=== PATIENT | female | born 1975 | race Caucasian/White ===

== ENCOUNTER 2017-03-26 17:26 | Emergency (ER) | payer MEDICAID ==
--- NOTE | 2017-03-26 18:26 | ER Document Report ---
ED Medical Screen (RME) - General Chief Complaint: Flank Pain Stated Complaint: STOMACH PAIN Time Seen by Provider: 03/26/17 18:21 Notes: Patient states she has a history of abdominal problems with intermittent diarrhea and mucus from her rectum. She states approximately 2 years ago she had a colonoscopy and was told that she had a mild colitis and was prescribed antibiotics. She states she was not informed of any other abnormalities on the colonoscopy. She states now for several months she has had left sided abdominal pain with continued diarrhea. No problems with urination. No problems with vaginal discharge or bleeding. She states that she gets easily distended and bloated when eating. Patient denies any fever. TRAVEL OUTSIDE OF THE [place] IN LAST 30 DAYS: No - Related Data Allergies/Adverse Reactions: gabapentin [From Neurontin] Allergy (Unknown, Verified 03/26/17 17:31) haloperidol Allergy (Verified 03/26/17 18:17) Home Medications: Current Home Medications Amitriptyline HCl [Elavil 50 Mg Tablet] 50 mg PO QHS 03/26/17 [History] Past Medical History Neurological Medical History: Reports: Hx Migraine Renal/ Medical History: Denies: Hx Peritoneal Dialysis Musculoskeltal Medical History: Reports Hx Arthritis Psychiatric Medical History: Reports: Hx Anxiety Past Surgical History: Reports: Hx Myringotomy, Hx Oral Surgery - Cleft palate, Hx Tubal Ligation - Immunizations Hx Diphtheria, Pertussis, Tetanus Vaccination: Yes Physical Exam - Vital signs Vitals: Temp Pulse Resp BP Pulse Ox 98.0 F 78 16 150/90 H 100 03/26/17 17:30 03/26/17 17:30 03/26/17 17:30 03/26/17 17:30 03/26/17 17:30 Course - Vital Signs Vital signs: Temp Pulse Resp BP Pulse Ox 98.0 F 78 16 150/90 H 100 03/26/17 17:30 03/26/17 17:30 03/26/17 17:30 03/26/17 17:30 03/26/17 17:30
[2017-03-26] MEDS ORDERED: ONDANSETRON HCL INJ/PF 4 MG/2 ML SDV IV ONE (19:09)
[2017-03-26] MEDS ORDERED: NORMAL SALINE 1000 ML 1,000 ML IV ONE (19:09)
--- NOTE | 2017-03-26 19:11 | ER Document Report ---
ED GI/ - General Chief Complaint: Flank Pain Stated Complaint: STOMACH PAIN Time Seen by Provider: 03/26/17 18:21 Mode of Arrival: Ambulatory Information source: Patient Notes: Patient presents complaining of left side and left flank pain off and on for several years. Patient reports loose stools off and on for the past 6 months. Patient reports decreased appetite and that whenever she eats she quickly feels very full and bloated. Patient reports nausea without any vomiting today. Patient denies any fever or urinary symptoms. Patient reports that her last colonoscopy was 6 months ago and her GI doctor did not have an explanation for her pain. TRAVEL OUTSIDE OF THE [place] IN LAST 30 DAYS: No - HPI Patient complains to provider of: Abdominal pain, Flank pain Onset: Other - off/on several years Timing/Duration: Waxing and waning Quality of pain: Achy Pain Level: 4 Location: Left flank, Other - left side pain Vaginal bleeding (Compared to normal period): None Sexual history: Active Associated symptoms: Diarrhea, Loss of appetite, Nausea. denies: Constipation, Dysuria, Fever, Urinary hesitancy, Urinary frequency, Urinary retention, Urinary urgency Exacerbated by: Denies Relieved by: Denies Similar symptoms previously: Yes Recently seen / treated by doctor: No - Related Data Allergies/Adverse Reactions: gabapentin [From Neurontin] Allergy (Unknown, Verified 03/26/17 17:31) haloperidol Allergy (Verified 03/26/17 18:17) Home Medications: Current Home Medications Amitriptyline HCl [Elavil 50 Mg Tablet] 50 mg PO QHS 03/26/17 [History] Past Medical History - General Information source: Patient - Social History Smoking Status: Current Every Day Smoker Frequency of alcohol use: None Drug Abuse: Marijuana Occupation: car dealership Lives with: Family Family History: Reviewed & Not Pertinent - Medical History Medical History: Other - stickler syndrome Neurological Medical History: Reports: Hx Migraine Renal/ Medical History: Denies: Hx Peritoneal Dialysis Musculoskeltal Medical History: Reports Hx Arthritis Psychiatric Medical History: Reports: Hx Anxiety Past Surgical History: Reports: Hx Myringotomy, Hx Oral Surgery - Cleft palate, Hx Tubal Ligation - Immunizations Hx Diphtheria, Pertussis, Tetanus Vaccination: Yes Review of Systems - Review of Systems Constitutional: No symptoms reported. denies: Fever, Recent illness EENT: No symptoms reported Cardiovascular: No symptoms reported Respiratory: No symptoms reported. denies: Cough, Short of breath Gastrointestinal: Abdominal pain, Diarrhea, Nausea, Poor appetite. denies: Vomiting, Constipation, Poor fluid intake Genitourinary: Flank pain. denies: Dysuria Female Genitourinary: No symptoms reported Musculoskeletal: No symptoms reported Skin: No symptoms reported Hematologic/Lymphatic: No symptoms reported Neurological/Psychological: No symptoms reported Physical Exam - Vital signs Vitals: Temp Pulse Resp BP Pulse Ox 98.0 F 78 16 150/90 H 100 03/26/17 17:30 03/26/17 17:30 03/26/17 17:30 03/26/17 17:30 03/26/17 17:30 - General General appearance: Appears well, Alert In distress: None - HEENT Head: Normocephalic, Atraumatic Eyes: Normal Nasal: Normal Mouth/Lips: Normal Mucous membranes: Normal Neck: Normal, Supple. No: Lymphadenopathy - Respiratory Respiratory status: No respiratory distress Chest status: Nontender Breath sounds: Normal. No: Rales, Rhonchi, Stridor, Wheezing Chest palpation: Normal - Cardiovascular Rhythm: Regular Heart sounds: S1 appreciated, S2 appreciated Murmur: No - Abdominal Inspection: Normal Distension: No distension Bowel sounds: Normal Tenderness: Tender - left lateral side pain. No: McBurney's point, Henriquez's sign, Guarding Organomegaly: No organomegaly - Back Back: CVA tenderness - left - Extremities General upper extremity: Normal inspection, Normal ROM General lower extremity: Normal inspection, Normal ROM - Neurological Neuro grossly intact: Yes Cognition: Normal [place] Coma Scale Eye Opening: Spontaneous [place] Coma Scale Verbal: Oriented [place] Coma Scale Motor: Obeys Commands [place] Coma Scale Total: 15 - Psychological Associated symptoms: Normal affect, Normal mood - Skin Skin Temperature: Warm Skin Moisture: Dry Skin Color: Normal Course - Vital Signs Vital signs: Temp Pulse Resp BP Pulse Ox 98.0 F 71 18 143/83 H 99 03/26/17 17:30 03/26/17 22:17 03/26/17 22:17 03/26/17 22:17 03/26/17 22:17 - Laboratory Result Diagrams: 03/26/17 19:18 03/26/17 19:18 Laboratory results interpreted by me: 03/26/17 19:18 Calcium 10.4 H Labs- Entire Visit 03/26/17 03/26/17 03/26/17 18:47 19:18 19:18 WBC 8.7 RBC 4.05 Hgb 12.5 Hct 37.2 MCV 92 MCH 30.8 MCHC 33.5 RDW 13.2 Plt Count 229 Seg Neutrophils % 65.2 Lymphocytes % 21.4 Monocytes % 10.3 Eosinophils % 2.2 Basophils % 0.9 Absolute Neutrophils 5.6 Absolute Lymphocytes 1.9 Absolute Monocytes 0.9 Absolute Eosinophils 0.2 Absolute Basophils 0.1 Sodium 142.2 Potassium 3.9 Chloride 105 Carbon Dioxide 25 Anion Gap 12 BUN 8 Creatinine 0.68 Est GFR ( Amer) > 60 Est GFR (Non-Af Amer) > 60 Glucose 77 Calcium 10.4 H Total Bilirubin 0.7 Direct Bilirubin 0.4 Indirect Bilirubin Not Reportable Neonat Total Bilirubin Not Reportable AST 21 ALT 28 Alkaline Phosphatase 62 Total Protein 8.1 Albumin 4.5 Lipase 222.5 Urine Color YELLOW Urine Appearance CLEAR Urine pH 7.0 Ur Specific [place] 1.010 Urine Protein NEGATIVE Urine Glucose (UA) NEGATIVE Urine Ketones NEGATIVE Urine Blood NEGATIVE Urine Nitrite NEGATIVE Urine Bilirubin NEGATIVE Urine Urobilinogen NEGATIVE Ur Leukocyte Esterase NEGATIVE Urine WBC (Auto) 0 Urine RBC (Auto) 0 Squamous Epi Cells Auto 6 Urine Mucus (Auto) RARE Urine Ascorbic Acid NEGATIVE Urine HCG, Qual NEGATIVE - Diagnostic Test Radiology reviewed: Reports reviewed Discharge - Discharge Clinical Impression: Elevated blood pressure reading, Left flank pain, Nausea Abdominal pain Qualifiers: Abdominal location: left lower quadrant Qualified Code(s): R10.32 - Left lower quadrant pain Diarrhea Qualifiers: Diarrhea type: unspecified type Qualified Code(s): R19.7 - Diarrhea, unspecified Condition: Stable Disposition: HOME, SELF-CARE Instructions: Abdominal Pain ([facility]), Antispasmodics ([facility]) Additional Instructions: Return immediately for any new or worsening symptoms Followup with your primary care provider, call tomorrow to make a followup appointment Obtain a stool specimen and bring to the lab for further evaluation Follow-up with your hand sprayer for further evaluation, call tomorrow for an appointment DIARRHEA, NON-SPECIFIC: Diarrhea means frequent, watery stools. There are many causes. Any problem that keeps the intestinal tract from absorbing water from the stool can lead to diarrhea. A sudden new diarrhea problem is usually caused by a virus, food sensitivity, toxic bacteria, or drugs. In this case, we expect the problem to go away soon. Testing is done only if you seem seriously ill from the diarrhea. If you have chronic diarrhea, or diarrhea that keeps coming back, we need to find out why. Chronic diarrhea can be due to inflammation of the bowels such as Crohn's disease or ulcerative colitis, food sensitivity such as intolerance to lactose or wheat protein, irritable bowel syndrome, and other problems. If your diarrhea is a significant problem but it's not clear why you have it, we' ll refer you to a specialist for further testing. During an episode of diarrhea, drink small amounts (two to six ounces) of clear liquids (soft drinks, sport drinks, herb teas, broth, etc). Take fluids frequently to prevent dehydration. It's usually not a problem to take mild anti- diarrhea medication such as Kaopectate or Pepto-Bismol. As the diarrhea eases, advance to small amounts of bland food (mashed potato, toast) for 24 hours. Call the physician if blood appears in your vomit or stool, if vomiting lasts longer than 24 hours, if the abdominal pain worsens or becomes localized to one area, if you develop high fever, or if you become lightheaded and weak. ANTINAUSEA MEDICATION: You have been given a medication to suppress nausea and vomiting. This type of medication can be given as a shot, pill, or suppository. It will usually last for many hours. Pills and shots usually last six to eight hours. For the typical illness, only one or two doses of the medication may be necessary. Mild lightheadedness may occur. This type of medicine can cause drowsiness. Do not drive or operate dangerous machinery while under its influence. Do not mix with alcohol. See your doctor at once if you have muscle spasms or tightness, or uncontrollable motions (particularly of the neck, mouth, or jaw). Persistent vomiting or severe lightheadedness should also be evaluated by the physician. Prescriptions: Dicyclomine HCl [Bentyl 20 mg Tablet] 20 mg PO QID #12 tablet Ondansetron HCl [Zofran 4 mg Tablet] 1 - 2 tab PO Q6 PRN #15 tablet PRN Reason: Forms: Elevated Blood Pressure, Follow-Up Laboratory Testing, Return to Work Referrals: ARIANA CASTILLO MD [NO LOCAL MD] - Follow up tomorrow
[2017-03-26 19:19] LABS: APPEARANCE,URINE CLEAR; BILIRUBIN,URINE NEGATIVE (NEGATIVE); GLUCOSE, URINE NEGATIVE (NEGATIVE); KETONES,URINE NEGATIVE (NEGATIVE); LEUKOCYTE ESTERASE,URINE NEGATIVE (NEGATIVE); NITRITE,URINE NEGATIVE (NEGATIVE); PROTEIN,URINE NEGATIVE (NEGATIVE); UROBILINOGEN,URINE NEGATIVE mg/dL (<2.0)
[2017-03-26 19:29] LABS: ABSOLUTE BASOPHILS # (AUTO) 0.1 10^3/uL (0.0-0.2); ABSOLUTE EOSINOPHILS # (AUTO) 0.2 10^3/uL (0.0-0.6); ABSOLUTE LYMPHOCYTES (AUTO) 1.9 10^3/uL (0.5-4.7); ABSOLUTE MONOCYTES (AUTO) 0.9 10^3/uL (0.1-1.4); ABSOLUTE NEUT (AUTO) 5.6 10^3/uL (1.7-8.2); BASOPHILS % (AUTO) 0.9 % (0-2); EOSINOPHILS % (AUTO) 2.2 % (0-6); HEMATOCRIT 37.2 % (36.0-47.0); HEMOGLOBIN 12.5 g/dL (12.0-15.5); HGB HCT DIFFERENCE 0.3; LYMPHOCYTES % (AUTO) 21.4 % (13-45); MEAN CORPUSCULAR HEMOGLOBIN 30.8 pg (27.0-33.4); MEAN CORPUSCULAR HGB CONC 33.5 g/dL (32.0-36.0); MEAN CORPUSCULAR VOLUME 92 fl (80-97); MONOCYTES % (AUTO) 10.3 % (3-13); RED BLOOD COUNT 4.05 10^6/uL (3.72-5.28); RED CELL DISTRIBUTION WIDTH 13.2 % (11.5-14.0); SEGMENTED NEUTROPHILS % (AUTO) 65.2 % (42-78); WHITE BLOOD COUNT 8.7 10^3/uL (4.0-10.5)
[2017-03-26 19:42] LABS: ALANINE AMINOTRANSFERASE 28 U/L (9-52); ALBUMIN 4.5 g/dL (3.5-5.0); ALKALINE PHOSPHATASE 62 U/L (38-126); ANION GAP 12 (5-19); ASPARTATE AMINO TRANSFERASE 21 U/L (14-36); BILIRUBIN,DIRECT 0.4 mg/dL (0.0-0.4); BILIRUBIN,TOTAL 0.7 mg/dL (0.2-1.3); BLOOD UREA NITROGEN 8 mg/dL (7-20); CALCIUM 10.4 mg/dL (8.4-10.2); CARBON DIOXIDE 25 mmol/L (22-30); CHLORIDE 105 mmol/L (98-107); CREATININE RESULT 0.68 mg/dL (0.52-1.25); GLUCOSE 77 mg/dL (75-110); LIPASE 222.5 U/L (23-300); POTASSIUM 3.9 mmol/L (3.6-5.0); SODIUM 142.2 mmol/L (137-145); TOTAL PROTEIN 8.1 g/dL (6.3-8.2)
[2017-03-26] MEDS ORDERED: OXYCODONE-ACETAMINOPHEN 5-325 MG TABLET PO ONE (20:23)
--- NOTE | 2017-03-26 21:34 | RADIOLOGY REPORT (SQ) ---
EXAM DESCRIPTION: CT ABD/PELVIS WITH IV ONLY COMPLETED DATE/TIME: 03/26/2017 9:23 pm REASON FOR STUDY: left flank, L side abd pain COMPARISON: None. TECHNIQUE: CT scan of the abdomen and pelvis performed using helical scanning technique with dynamic intravenous contrast injection. No oral contrast. Images reviewed with lung, soft tissue, and bone windows. Reconstructed coronal and sagittal MPR images reviewed. Delayed images for evaluation of the urinary system also acquired. All images stored on PACS. All CT scanners at this facility use dose modulation, iterative reconstruction, and/or weight based d osing when appropriate to reduce radiation dose to as low as reasonably achievable (ALARA). [facility]: Dose Right [facility]: CareDose [facility]: Dose Right [facility]: Teradose 4D [facility]: [employer] CONTRAST TYPE AND DOSE: contrast/concentration: Isovue 370.00 mg/ml; Total Contrast Delivered: 70.0 ml; Total Saline Delivered: 41.0 ml RENAL FUNCTION: GFR > 60. RADIATION DOSE: Up-to-date CT equipment and radiation dose reduction techniques were employed. CTDIv ol: 5.4 mGy. DLP: 572 mGy-cm.. LIMITATIONS: None. FINDINGS: LOWER CHEST: No significant findings. No nodules or infiltrates. LIVER: Normal size. No masses. No dilated ducts. SPLEEN: Normal size. No focal lesions. PANCREAS: No masses. No significant calcifications. No adjacent inflammation or peripancreatic fluid collections. Pancreatic duct not dilated. GALLBLADDER: No identified stones by CT criteria. No inflammatory changes to suggest cholecystitis. ADRENAL GLANDS: No significant masses or asymmetry. RIGHT KIDNEY AND URETER: No solid masses. No significant calcifications. No hydronephrosis or hyd roureter. LEFT KIDNEY AND URETER: No solid masses. No significant calcifications. No hydronephrosis or hydr oureter. AORTA AND VESSELS: No aneurysm. No dissection. Renal arteries, SMA, celiac without stenosis. RETROPERITONEUM: No retroperitoneal adenopathy, hemorrhage or masses. BOWEL AND PERITONEAL CAVITY: No masses or inflammatory changes. No free fluid or peritoneal masses. APPENDIX: Normal. PELVIS: No mass. No free fluid. Normal bladder. ABDOMINAL WALL: No masses. No hernias. BONES: No significant or acute findings. OTHER: No other significant finding. IMPRESSION: NO SIGNIFICANT OR ACUTE FINDING IN THE ABDOMEN OR PELVIS ON CT SCAN WITH IV CONTRAST. TECHNICAL DOCUMENTATION: JOB ID: [id number] Quality ID # [id number]: Final reports with documentation of one or more dose reduction techniques (e.g., Au tomated exposure control, adjustment of the mA and/or kV according to patient size, use of iterative reconstruction technique) 2010 [employer]- All Rights Reserved
[2017-03-26 22:18] VITALS: BP 143/83
== END 2017-03-26 22:17 | disposition home or self-care (01) ==
LOC: ER 17:26
DX: R10.32 Left lower quadrant pain (principal); R63.0 Anorexia; R11.0 Nausea; R19.7 Diarrhea, unspecified; R03.0 Elevated blood-pressure reading, without diagnosis of hypertension; F17.200 Nicotine dependence, unspecified, uncomplicated; Z88.6 Allergy status to analgesic agent; Z88.8 Allergy status to other drugs, medicaments and biological substances
CPT/HCPCS: 99284; 96361; 96374; 36415; 83690; 85025; 81025; 80053; 81001; 74177; J2405; J7030

== ENCOUNTER 2020-05-26 12:08 | Emergency (ER) | payer SELFPAY ==
[2020-05-26 12:16] VITALS: BP 147/90
--- NOTE | 2020-05-26 12:45 | ER Document Report ---
HPI - HPI Patient complains to provider of: Hand infection, upper respiratory symptoms Time Seen by Provider: 05/26/20 12:34 Notes: 44-year-old female to the emergency department with 2 separate complaints. States that first for the past week she has noted 2 bites on her hand that seem to be getting worse with increased redness, drainage, pain. She states she is not quite sure what bit her. However, it has not been healing very well despite trying to keep it clean and apply topical antibiotics to it. She states last night it was really uncomfortable particularly to bite on the right thumb. She also states for the past several days she has had upper respiratory symptoms. She has had sore throat, cough, loss of taste and smell. Denies any fevers or chills. She states that she has not had any known positive Covid contacts. She denies any nausea, vomiting, diarrhea, shortness of breath, chest pain. - ROS Systems Reviewed and Negative: Yes All other systems reviewed and negative - CONSTITUTIONAL Constitutional: DENIES: Fever, Chills - EENT EENT: REPORTS: Sore Throat, Congestion - NEURO Neurology: DENIES: Headache - CARDIOVASCULAR Cardiovascular: DENIES: Chest pain - RESPIRATORY Respiratory: REPORTS: Coughing. DENIES: Trouble Breathing - GASTROINTESTINAL Gastrointestinal: DENIES: Abdominal Pain, Nausea, Patient vomiting, Diarrhea - MUSCULOSKELETAL Musculoskeletal: DENIES: Extremity pain, Back Pain - DERM Skin Color: Normal Notes: 2 separate likely insect bites to the back of the right hand with erythema, pain, crusting discharge Past Medical History - General Information source: Patient - Social History Smoking Status: Current Every Day Smoker Frequency of alcohol use: Rare Drug Abuse: None Family History: Reviewed & Not Pertinent Neurological Medical History: Reports: Hx Migraine Renal/ Medical History: Denies: Hx Peritoneal Dialysis Musculoskeletal Medical History: Reports Hx Arthritis Psychiatric Medical History: Reports: Hx Anxiety Past Surgical History: Reports: Hx Myringotomy, Hx Oral Surgery - Cleft palate, Hx Tubal Ligation - Immunizations Hx Diphtheria, Pertussis, Tetanus Vaccination: Yes Vertical Provider Document - CONSTITUTIONAL Agree With Documented VS: Yes General Appearance: WD/WN, No Apparent Distress - INFECTION CONTROL TRAVEL OUTSIDE OF THE [place] IN LAST 30 DAYS: No - HEENT HEENT: Atraumatic, Normocephalic, PERRLA Notes: TMs clear bilaterally. Mild postnasal drip in the posterior oropharynx. No exudate. Airway is grossly patent. No anterior lymphadenopathy. - NECK Neck: Normal Inspection, Supple - RESPIRATORY Respiratory: Breath Sounds Normal, No Respiratory Distress. negative: Rales, Rhonchi, Wheezing - CARDIOVASCULAR Cardiovascular: Regular Rate, Regular Rhythm, No Murmur - GI/ABDOMEN Gastrointestinal: Abdomen Soft, Abdomen Non-Tender, No Organomegaly - BACK Back: Normal Inspection - MUSCULOSKELETAL/EXTREMETIES Musculoskeletal/Extremeties: LILY MITTAL - NEURO Level of Consciousness: Awake, Alert - DERM Integumentary: Warm, Rash Notes: To the back of the right thumb there appears to be an insect bite that is infected. It has surrounding erythema and appears to have some purulent drainage. There is no abscess. There is no streaking lymphangitis. To the dorsum of the right middle finger, there is a second insect bite again with erythema and purulent drainage. There is mild surrounding erythema. No streaking lymphangitis. Patient has full range of motion of bilateral hands with 5 out of 5 handgrip. She has cap refill that is less than 2 seconds. Radial pulses are intact and equal. There is no snuffbox tenderness. Course - Re-evaluation Re-evalutation: Impression: Infected insect bites with cellulitis. We will go ahead and start on antibiotics. Upper respiratory illness. Patient declines chest x-ray today. She would like to be tested for Covid. We will place her on quarantine until she finds out the result of the Covid testing. Patient was provided with discharge information including: As a person under investigation for COVID-19, [facility] and [facility], division of public health advises you to adhere to the following guidance until your test results are reported to you. If your test result is positive, you will receive additional information from your provider and your local health department at that time. Remain at home until you are cleared by the healthcare provider public health authorities. Keep a log of visitors to your home and notify any visitors to your home of your isolation status. If you plan to move to a new address or leave the country, notify the local health department and your County. Call your doctor or seek care if you have an urgent medical need. Before seek ing medical care, call ahead to get instructions from the provider before arriving at the medical office, clinic, or hospital. Notify them that you are being tested for the virus that causes COVID-19 so that arrangements can be made, as necessary, to prevent transmission to others in the healthcare setting. Next, notify the local health department and your County. If a medical emergency arises and you need to call 911, informed the first responders that you are being tested for the virus that causes COVID-19. Next, notified the [facility] health department and your County. - Vital Signs Vital signs: Temp Pulse Resp BP Pulse Ox 98.4 F 84 16 147/90 H 98 05/26/20 12:15 05/26/20 12:15 05/26/20 12:15 05/26/20 12:15 05/26/20 12:15 Discharge - Discharge Clinical Impression: Cellulitis of right hand URI (upper respiratory infection) Qualifiers: URI type: unspecified URI Qualified Code(s): J06.9 - Acute upper respiratory infection, unspecified Insect bite Qualifiers: Encounter type: initial encounter Site of insect bite: hand Laterality: right Qualified Code(s): S60.561A - Insect bite (nonvenomous) of right hand, initial encounter Condition: Stable Disposition: HOME, SELF-CARE Instructions: Cellulitis ([facility]), Upper Respiratory Illness ([facility]) Additional Instructions: Complete antibiotics as prescribed. Apply topical antibiotic cream. Return if worsening symptoms. You must quarantine until you have the results of your Covid test. Covid test returned in about 3 to 5 days. As a person under investigation for COVID-19, [place] department of Health and Human Services, division of public health advises you to adhere to the following guidance until your test results are reported to you. If your test result is positive, you will receive additional information from your provider and your local health department at that time. Remain at home until you are cleared by the healthcare provider public health authorities. Keep a log of visitors to your home and notify any visitors to your home of your isolation status. If you plan to move to a new address or leave the country, notify the local health department and your County. Call your doctor or seek care if you have an urgent medical need. Before seeking medical care, call ahead to get instructions from the provider before arriving at the medical office, clinic, or hospital. Notify them that you are being tested for the virus that causes COVID-19 so that arrangements can be made, as necessary, to prevent transmission to others in the healthcare setting. Next, notify the local health department and your County. If a medical emergency arises and you need to call 911, informed the first responders that you are being tested for the virus that causes COVID-19. Next, notified the local health department and your County. Prescriptions: Ibuprofen [Motrin 600 mg Tablet] 600 mg PO Q8HP PRN #20 tablet PRN Reason: Benzonatate [Tessalon Perles 100 mg Capsule] 100 mg PO Q8HP PRN #40 capsule PRN Reason: Sulfamethoxazole/Trimethoprim [Bactrim Ds Tablet] 1 each PO BID #20 tablet Mupirocin [Bactroban 2% Ointment 22 gm] 1 applic TP TID #1 tube Referrals: [facility] [Provider Group] - Follow up in 1 week [facility] [Provider Group] - Follow up in 1 week
== END 2020-05-26 12:55 | disposition home or self-care (01) ==
LOC: ER 12:08
DX: J06.9 Acute upper respiratory infection, unspecified (principal); S60.361A Insect bite (nonvenomous) of right thumb, initial encounter; L03.113 Cellulitis of right upper limb; W57.XXXA Bitten or stung by nonvenomous insect and other nonvenomous arthropods, initial encounter; F17.200 Nicotine dependence, unspecified, uncomplicated; R09.82 Postnasal drip; Z20.828 Contact with and (suspected) exposure to other viral communicable diseases
CPT/HCPCS: 99283; 87635; C9803